=== PATIENT | female | born 1970 | race Caucasian/White ===

== ENCOUNTER 2020-12-30 00:30 | Emergency (ER) | payer MEDICAID ==
[~2020-12-30] VITALS: Ht 162.6 cm; Wt 70.5 kg
[2020-12-30 00:36] VITALS: BP 156/87; Ht 162.6 cm; Wt 70.5 kg
[2020-12-30] MEDS ORDERED: ULTRAM50 MG PO ×2 (00:41→01:15)
[2020-12-30] MEDS ORDERED: GABAPENTIN100 MG PO (00:41)
[2020-12-30] MEDS ORDERED: LISINOPRIL20 MG PO (00:42)
[2020-12-30] MEDS ORDERED: LOPRESSOR25 MG PO (00:42)
[2020-12-30] MEDS ORDERED: GLUCOPHAGE500 MG PO (00:42)
[2020-12-30] MEDS ORDERED: CLINDAMYCIN HC300 MG PO (01:15)
== END 2020-12-30 01:26 | disposition home or self-care (01) ==
LOC: D.ER 00:30
DX: K02.9 Dental caries, unspecified (principal); K04.7 Periapical abscess without sinus